=== PATIENT | female | born 2005 | race African-American/Black ===

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

== ENCOUNTER 2025-04-20 20:58 | Emergency (ER) | payer MEDICAID, SELFPAY ==
[2025-04-20 21:27] LABS: Pregnancy Test - Urine (BHCG) POSITIVE (Negative)
[2025-04-20 21:28] LABS: Glucose, Urine (Dipstick) Negative (Negative); Leukocyte Moderate (Negative); Pregu Control Background? CLEAR/WHITE (CLR/WHITE); Pregu Control Bar Appear? YES (CONTROL BAR); Protein, Urine (Dipstick) Negative (Neg-Trace); Specific Gravity, Urine 1.020 (1.005-1.030)
[2025-04-20 21:29] LABS: Bacteria/HPF None Seen HPF (None Seen); CAUTI Indications for Culture Dysuria,urgency,freq; RBC/HPF 0-3 HPF (0-3); Urine Culture Reflex No No; WBC/HPF 0-3 HPF (0-3)
== END 2025-04-20 22:01 | disposition home or self-care (01) ==
LOC: BURERS 20:58
DX: O99.891 Other specified diseases and conditions complicating pregnancy (principal); O99.330 Smoking (tobacco) complicating pregnancy, unspecified trimester; O99.519 Diseases of the respiratory system complicating pregnancy, unspecified trimester; N89.8 Other specified noninflammatory disorders of vagina; J45.909 Unspecified asthma, uncomplicated; F17.290 Nicotine dependence, other tobacco product, uncomplicated; Z79.51 Long term (current) use of inhaled steroids; Z3A.00 Weeks of gestation of pregnancy not specified
CPT/HCPCS: 81001; 81025; 99283